=== PATIENT | female | born 1975 | race Caucasian/White ===

== ENCOUNTER 2017-07-26 00:37 | Emergency (ER) | payer SELFPAY, MEDICAID | END 2017-07-26 05:12 | disposition left against medical advice (07) | LOC: FTE 05:12 | DX: Z53.21 Procedure and treatment not carried out due to patient leaving prior to being seen by health care provider (principal) ==

== ENCOUNTER 2017-07-26 20:52 | Emergency (ER) | payer SELFPAY | END 2017-07-27 00:14 | disposition left against medical advice (07) | LOC: FTE 20:52 | DX: Z53.21 Procedure and treatment not carried out due to patient leaving prior to being seen by health care provider (principal) ==

== ENCOUNTER 2018-08-17 21:52 | Emergency (ER) | payer SELFPAY | END 2018-08-18 01:30 | disposition left against medical advice (07) | LOC: FTE 21:52 | DX: Z53.21 Procedure and treatment not carried out due to patient leaving prior to being seen by health care provider (principal) ==